=== PATIENT | female | born 1980 | race American Indian/Alaskan Native ===

== ENCOUNTER 2016-09-07 21:58 | Emergency (ER) | payer OTHER ==
[2016-09-07 21:59] VITALS: BMI 20.5
[2016-09-07 22:33] VITALS: RESP 18; O2SAT 99
[2016-09-07] MEDS ORDERED: Sodium Chloride 0.9% 1,000 ML IV STA (23:30)
[2016-09-07] MEDS ORDERED: DiphenhydrAMINE 50 mg/ml Inj IVP STA (23:32)
--- NOTE | 2016-09-07 23:38 | ED PDOC ---
Arrival/HPI <Carter Hidalgo - Last Filed: 09/08/16 00:04> - General Historian: Patient - History of Present Illness Time/Duration: Other (since last night) Quality: Throbbing Context: Home <Yves Britt - Last Filed: 09/08/16 02:18> - General Chief Complaint: Headache Time Seen by Provider: 09/07/16 23:30 - History of Present Illness Narrative History of Present Illness (Text): 09/07/16 23:38 This 36 yo female with pmh MCLAUGHLIN, presents to this ED c/o headaches since last night. Patient stated MCLAUGHLIN is throbbing, on left side. Patient feels mild nausea. Patient noted a mild urinary frequency. Denies fever, diplopia, dysarthria, weakness, paresthesias, dysphagia, dizziness, hearing loss, vomiting , diarrhea, std exposure, vaginal discharge, or abnormal gait. (Yves Britt) Past Medical History - Provider Review Nursing Documentation Reviewed: Yes - Infectious Disease Hx of Infectious Diseases: None - Tetanus Immunization Tetanus Immunization: Unknown - Pulmonary Hx Asthma: Yes - Endocrine/Metabolic Hx Hyperthyroidism: Yes - Psychiatric Hx Depression: No Hx Substance Use: No - Surgical History Hx Section: Yes - Anesthesia Hx Anesthesia: Yes Hx Anesthesia Reactions: No Hx Malignant Hyperthermia: No - Suicidal Assessment Feels Threatened In Home Enviroment: No <Yves Britt - Last Filed: 09/08/16 02:18> Family/Social History - Physician Review Nursing Documentation Reviewed: Yes Family/Social History: No Known Family HX Smoking Status: Light Smoker < 10 Cigarettes Daily Hx Alcohol Use: Yes Hx Substance Use: No <Yves Britt - Last Filed: 09/08/16 02:18> Allergies/Home Meds <Carter Hidalgo - Last Filed: 09/08/16 00:04> <Yves Britt - Last Filed: 09/08/16 02:18> Allergies/Adverse Reactions: Allergies No Known Allergies Allergy (Verified 06/06/16 15:53) Home Medications: Home Meds Medication Instructions Recorded Confirmed Albuterol Sulfate [Proventil Hfa] 0.09 mg IH BID PRN 09/27/12 06/06/16 Review of Systems - Review of Systems Constitutional: Normal. absent: Fatigue, Weight Change, Fevers Eyes: Normal ENT: Normal Respiratory: Normal. absent: SOB, Cough Cardiovascular: Normal. absent: Chest Pain, Palpitations Gastrointestinal: Nausea. absent: Abdominal Pain, Constipation, Diarrhea, Vomiting Genitourinary Female: Frequency. absent: Dysuria, Hematuria, Vaginal Bleeding, Vaginal Discharge Musculoskeletal: Normal Skin: Normal. absent: Rash Neurological: Normal. absent: Headache, Dizziness, Focal Weakness, Gait Changes , Speech Changes, Facial Droop, Disequilibrium, Seizure Endocrine: Normal Hemo/Lymphatic: Normal Psychiatric: Normal <Britt,Nahim P - Last Filed: 09/08/16 02:18> Physical Exam Temperature: Afebrile Blood Pressure: Normal Pulse: Regular Respiratory Rate: Normal Appearance: Positive for: Well-Appearing, Non-Toxic, Comfortable Pain Distress: None Mental Status: Positive for: Alert and Oriented X 3 - Systems Exam Head: Present: Atraumatic, Normocephalic Pupils: Present: PERRL Extroacular Muscles: Present: EOMI Conjunctiva: Present: Normal Mouth: Present: Moist Mucous Membranes Pharnyx: Present: Normal. No: ERYTHEMA, EXUDATE, TONSILS ENLARGED Nose (External): Present: Atraumatic Nose (Internal): Present: Normal Inspection Neck: Present: Normal Range of Motion Respiratory/Chest: Present: Clear to Auscultation, Good Air Exchange. No: Respiratory Distress, Accessory Muscle Use, Wheezes, Retracting, Rhonchi Cardiovascular: Present: Regular Rate and Rhythm, Normal S1, S2. No: Murmurs Abdomen: Present: Normal Bowel Sounds. No: Tenderness, Distention, Peritoneal Signs Back: Present: Normal Inspection. No: CVA Tenderness Upper Extremity: Present: Normal Inspection, Normal ROM, NORMAL PULSES, Neurovascularly Intact, Capillary Refill < 2s. No: Cyanosis, Edema Lower Extremity: Present: Normal Inspection, NORMAL PULSES, Normal ROM, Neurovascularly Intact, Capillary Refill < 2 s. No: Edema, CALF TENDERNESS Neurological: Present: GCS=15, CN II-XII Intact, Speech Normal, Motor Func Grossly Intact, Normal Sensory Function, Normal Cerebellar Funct, Gait Normal, Memory Normal Skin: Present: Warm, Dry, Normal Color. No: Rashes Psychiatric: Present: Alert, Oriented x 3, Normal Insight, Normal Concentration <Britt,Nahim P - Last Filed: 09/08/16 02:18> Vital Signs Temp Pulse Resp BP Pulse Ox 09/07/16 22:28 98.4 F 73 18 118/74 99 Medical Decision Making <Carter Hidalgo - Last Filed: 09/08/16 00:04> Re-evaluation Time: 02:14 Reassessment Condition: Re-examined, Improved - Lab Interpretations I have reviewed the lab results: Yes Interpretation: No clinic. lab abnormalty <Yves Britt - Last Filed: 09/08/16 02:18> ED Course and Treatment: 09/08/16 02:12 Re-evaluation. Patient feels better. Discussed results and plan with patient who expresses understanding. All questions answered and there is agreement with the plan to discharge home with instructions. Patient stable for discharge. Return if symptoms persist or worsen. Patient has been sleeping comfortably. Patient stated MCLAUGHLIN has improved, and she is requesting Neurologist referral. (Yves Britt) - Lab Interpretations Lab Results: Lab Results 09/08/16 00:33: Urine Color Yellow, Urine Appearance Sl cloudy, Urine pH 6.0, Ur Specific Wykoff 1.025, Urine Protein Negative, Urine Glucose (UA) Negative, Urine Ketones Negative, Urine Blood Moderate H, Urine Nitrate Negative, Urine Bilirubin Negative, Urine Urobilinogen 0.2, Ur Leukocyte Esterase Negative, Urine RBC 0 - 2, Urine WBC 2 - 5, Ur Epithelial Cells 3 - 4, Urine Bacteria Small - RAD Interpretation Narrative RAD Interpretations (Text): 09/08/16 02:09 Accession No. : [id number] Patient Name / ID : JAMEY PORTILLO / [id number] Exam Date : 09/08/2016 01:11:04 ( Approved ) Study Comment : Sex / Age : F / 36Y Creator : Ovi Doe MD Dictator : Log Scaler : Behavioral Health Aide : Ovi Doe MD Approver2 : Report Date : 09/08/2016 01:29:00 My Comment : [facility] Division of Radiology [address] [address] Tel. no. Patient Name: LINDSEY CONCEPCION Pt. Address: [address] [place] [address] Rec #: [id number] [place] [address]: Yves Britt PA-C Pt Order Location: ED : 1980 Female Age: 36 Order #: [id number] Reason for exam: [email or web address] CT Scan HEAD W/O CONTRAST Exam Date: 09/07/16 This imaging exam was performed at [facility] EXAM: CT Head Without Intravenous Contrast CLINICAL HISTORY: 36 years old, female; Pain; Headache; Additional info: MCLAUGHLIN TECHNIQUE: Axial computed tomography images of the head/brain without intravenous contrast. This CT exam was performed using one or more of the following dose reduction techniques: automated exposure control, adjustment of the mA and/or kV according to patient size, and/or use of iterative reconstruction technique. COMPARISON: No relevant prior studies available. FINDINGS: Limitations: Motion artifact - mild. Brain: No definite intracranial hemorrhage. No mass. No definite edema. Ventricles: No hydrocephalus. Bones/joints: No acute fracture. Soft tissues: Unremarkable. Sinuses: No acute sinusitis. Mastoid air cells: No mastoid effusion. Orbits: Unremarkable as visualized. IMPRESSION: 1. No definite acute intracranial abnormality. 2. Incidental/non-acute findings are described above. Dictated By: Ovi Doe MD Dictated Date/Time: 09/08/16128 Signed By: Ovi Doe MD Date Signed: 128 Transcribed By: MARY Transcribe Date/Time : 09/08/16128 ACYP02/MUSTAPHA (Yves Britt) Radiology Orders: 09/07/16 23:33 HEAD W/O CONTRAST [CT] Stat - Medication Orders Current Medication Orders: Discontinued Medications Diphenhydramine HCl (Benadryl) 25 mg IVP STAT STA Stop: 09/07/16 23:33 Last Admin: 09/08/16 00:03 Dose: 25 mg Sodium Chloride (Sodium Chloride 0.9%) 1,000 mls @ 999 mls/hr IV .Q1H1M STA Stop: 09/08/16 00:30 Last Admin: 09/08/16 00:02 Dose: 999 mls/hr Ketorolac Tromethamine (Toradol) 15 mg IVP STAT STA Stop: 09/08/16 01:56 Metoclopramide HCl (Reglan) 10 mg IVP STAT STA Stop: 09/07/16 23:32 Last Admin: 09/08/16 00:03 Dose: 10 mg - PA / SPECIFICATION MANAGER / Resident Statement / has reviewed & agrees with the documentation as recorded. <Carter Hidalgo - Last Filed: 09/08/16 00:04> Disposition/Present on Arrival <Carter Hidalgo - Last Filed: 09/08/16 00:04> - Present on Arrival Any Indicators Present on Arrival: No History of DVT/PE: No History of Uncontrolled Diabetes: No Urinary Catheter: No History of Decub. Ulcer: No History Surgical Site Infection Following: None - Disposition Have Diagnosis and Disposition been Completed?: Yes Disposition Time: 02:15 Patient Plan: Discharge <Yves Britt - Last Filed: 09/08/16 02:18> - Disposition Diagnosis: Headache Disposition: HOME/ ROUTINE Condition: GOOD Discharge Instructions (ExitCare): Acute Headache (ED) Additional Instructions: Call private doctor for follow up visit in 1-2 days. Take medication as instructed. Return to emergency if symptoms worsen. Call Neurologist for further medical evaluation. Prescriptions: Acetaminophen/Butalbital/Caf [Fioricet] 1 tab PO Q6H PRN #12 tab PRN Reason: Headache Naproxen 500 mg PO BID PRN #14 tab PRN Reason: Pain, Severe (8-10) Referrals: Kristopher Colin DO [Primary Care Provider] - Follow up with primary Idris Bangura MD [Staff Provider] - Follow up with primary Forms: WORK NOTE
[2016-09-08 01:10] LABS: URINE BILIRUBIN NEGATIVE (NEGATIVE); URINE BLOOD MODERATE (NEGATIVE); URINE GLUCOSE (UA) NEGATIVE (NEGATIVE); URINE KETONE NEGATIVE (NEGATIVE); URINE LEUKOCYTE ESTERASE NEGATIVE Leu/uL (NEGATIVE); URINE PROTEIN NEGATIVE mg/dL (<30 mg/dL); URINE UROBILINOGEN 0.2 E.U./dL (<1 E.U./dL)
[2016-09-08 01:11] LABS: URINE APPEARANCE SL CLOUDY (CLEAR); URINE COLOR YELLOW (YELLOW)
[2016-09-08 01:23] LABS: URINE BACTERIA SMALL (NEG); URINE RBC 0 - 2 /hpf (0-2)
--- NOTE | 2016-09-08 01:29 | CT ---
EXAM: CT Head Without Intravenous Contrast CLINICAL HISTORY: 36 years old, female; Pain; Headache; Additional info: MCLAUGHLIN TECHNIQUE: Axial computed tomography images of the head/brain without intravenous contrast. This CT exam was performed using one or more of the following dose reduction techniques: automated exposure control, adjustment of the mA and/or kV according to patient size, and/or use of iterative reconstruction technique. COMPARISON: No relevant prior studies available. FINDINGS: Limitations: Motion artifact - mild. Brain: No definite intracranial hemorrhage. No mass. No definite edema. Ventricles: No hydrocephalus. Bones/joints: No acute fracture. Soft tissues: Unremarkable. Sinuses: No acute sinusitis. Mastoid air cells: No mastoid effusion. Orbits: Unremarkable as visualized. IMPRESSION: 1. No definite acute intracranial abnormality. 2. Incidental/non-acute findings are described above.
[2016-09-08 02:49] VITALS: BP 120/72; PULSE 70; TEMP 98.5
== END 2016-09-08 02:50 | disposition home or self-care (01) ==
LOC: ED 21:58
DX: R51 Headache (principal)
CPT/HCPCS: 70450; 81001; 81025; 96374; 96375; 99285; J1200; J1885; J2765; J7040